=== PATIENT | female | born 1995 | race Hispanic/Latino ===

== ENCOUNTER 2023-11-27 17:54 | Emergency (ER) | payer OTHER, SELFPAY ==
[2023-11-27 18:02] VITALS: BP 144/100; BMI 36.3
[2023-11-27 18:32] LABS: % Basophils 0.4 % (0-2); % Eosinophils 2.9 % (0-6); % Immature Granulocytes 0.5 % (0-0.5); % Lymphocytes 23.7 % (20.5-51.1); % Monocytes 5.9 % (1.7-9.3); % Neutrophils 66.6 % (42.2-75.2); Absolute Eosinophils 0.3 10^3/uL (0-0.7); Absolute Monocytes 0.5 10^3/uL (0.1-0.6); Absolute Neutrophils 5.7 10^3/uL (1.4-6.5); Hematocrit 27.1 % (37.0-47.0); Hemoglobin 8.3 g/dL (12.0-16.0); Mean Corp Hgb Conc. 30.6 g/dL (33.0-37.0); Mean Corpuscular Hgb 22.7 pg (27.0-31.0); Mean Corpuscular Volume 74.2 fL (81.0-99.0); Mean Platelet Volume 13.2 fL (7.4-10.4); Nucleated Red Blood Cells % 0 %; Platelet Count 211 10^3/uL (130-400); Red Blood Cell Count 3.65 10^6/uL (4.20-5.40); White Blood Cell Count 8.5 10^3/uL (4.8-10.8)
[2023-11-27 18:46] LABS: ALT (SGPT) 23 U/L (0-35); AST (SGOT) 27 U/L (14-36); Albumin 4.5 g/dl (3.5-5.0); Alkaline Phosphatase 98 U/L (38-126); Blood Urea Nitrogen 16 mg/dl (7-17); Calcium 6.9 mg/dl (8.4-10.2); Carbon Dioxide 24 mmol/L (22-30); Chloride 100 mmol/L (98-107); Estimated Creatinine Clearance > 125 ml/min; Glucose 104 mg/dl (70-99); Potassium 3.9 mmol/L (3.5-5.1); Sodium 139 mmol/L (135-145); Total Bilirubin 0.8 mg/dl (0.2-1.3); Total Protein 8.2 g/dl (6.3-8.2); eGFR > 60.00
[2023-11-27 18:55] LABS: Troponin I < 0.012 ng/ml
--- NOTE | 2023-11-27 20:23 | ED.GENMED ---
History of Present Illness
General
Chief Complaint: Blood Pressure Problem
Source: patient
Exam Limitations: other (Some Language barrier and sister interpreted)
Time Seen by Provider: 11/27/23 19:50
Travel History
Have you had any contact with someone who has COVID-19?: No
Do you have any symptoms of coronavirus? Fever > 100 degrees, chills, cough, shortness of breath, sore throat, loss of taste or smell, muscle aches, or headache?: No
History of Present Illness
History of Present Illness:
This is a 28 year old female that comes in with c/o Hypertension. States that she went to the [facility] today and they found that her BP was 170/70. states that she was told that this was high to come to the Emergency room. States that she has
occasionally has some chest discomfort and SOB with walking. State that she was nauseated yesterday and had diarrhea. States that she is occasionally dizzy but not today. Denies any fever, chills, chest pain now, SOB now, Abd pain, nausea,
vomiting, diarrhea, urinary burning.
Past History
Past History
ED Past Medical History: Asthma, HTN and Hypercholesterolemia
ED Past Surgical History: None
Patient has exhibited threatening behavior?: No
PSI?: No
Social History
Tobacco: Non-smoker
Alcohol: None
Drug: None
Personal:
Living: with family
Review of Systems
Review of Systems
All Other Systems: ROS reviewed and negative except as documented in HPI and ROS
Constitutional: Reports no symptoms; Denies fever or chills
EENT: Reports no symptoms
Respiratory: Reports trouble breathing (occasionally when she walks); Denies cough
Cardiac: Denies chest pain
ABD/GI: Reports no symptoms; Denies abdominal pain, nausea, vomiting or diarrhea
: Reports no symptoms; Denies dysuria, frequency or urgency
Musculoskeletal: Reports no symptoms
Skin: Reports no symptoms
Neurological: Reports dizzy and headache
Psychiatric: Reports no symptoms
Phy Exam
General Physical Exam
General Presentation: well appearing and no apparent distress
General age: appears stated age
General Skin: warm and dry
General Habitus: normal
General Mental: alert
General Hydration: appears well hydrated
ENT Exam
ENT Exam: TM's normal, pharynx normal and neck supple
Eye Exam
Eye Exam: EOMI
Cardiovascular Exam
Cardiovascular Exam: regular rate/rhythm, no edema, no murmur and normal peripheral pulses
Pulmonary Exam
Pulmonary Exam: lungs clear, no respiratory distress, no rales, chest non tender, no crackles, no rhonchi, no wheezing and no cough
Gastrointestinal Exam
Gastrointestinal Exam: normal bowel sounds, non tender, soft, no organomegaly, no pulsatile mass and non distended
Musculoskeletal Exam
Musculoskeletal Exam: full ROM and no edema
Skin Exam
Skin Exam: normal color, warm/dry, no rash and no petechia
Psychiatric Exam
Psychiatric Exam: normal mood/affect
Course
Orders/Labs/Results
Orders:
Orders
11/27/23 18:06
Electrocardiogram (*1) Urgent
Reason for Study: Chest Pain
EKG- Treatment ONCE
11/27/23 18:14
Complete Blood Count/With Diff Urgent
Comprehensive Metabolic Panel Urgent
Troponin I Urgent
11/27/23 19:57
Calcium Gluconate IV [Calcium Gluconate 10% 10 ml] 4.65 meq IV NOW STA
11/27/23 20:25
Pantoprazole [Protonix] 40 mg PO NOW STA
Abnormal Lab Results
11/27/23
18:14
RBC 3.65 L 10^6/uL
(4.20-5.40)
Hgb 8.3 L g/dL
(12.0-16.0)
Hct 27.1 L %
(37.0-47.0)
MCV 74.2 L fL
(81.0-99.0)
MCH 22.7 L pg
(27.0-31.0)
MCHC 30.6 L g/dL
(33.0-37.0)
RDW 16.0 H %
(11.5-14.5)
MPV 13.2 H fL
(7.4-10.4)
Glucose 104 H mg/dl
(70-99)
Calcium 6.9 L* mg/dl
(8.4-10.2)
11/27/23 18:14
11/27/23 18:14
H/H low, Anemia, Glucose nonfasting. Hypocalcemia, Troponin <0.012
Vital Signs
Initial and Last Documented VS:
Initial Vital Signs
Temp Pulse Resp BP Pulse Ox
98.4 F 102 24 144/100 96
11/27/23 18:02 11/27/23 18:02 11/27/23 18:02 11/27/23 18:02 11/27/23 18:02
Last Documented Vital Signs
Temp Pulse Resp BP Pulse Ox
98.4 F 98 16 121/82 100
11/27/23 18:02 11/27/23 20:39 11/27/23 20:39 11/27/23 20:39 11/27/23 20:39
Electromechanical Engineer consulted with Physician
Name of Physician Consulted: Dr. Rivera
MDM/Problems Addressed
Differential Diagnosis Includes:
Anemia, Obesity, GERD,
MDM/Problems Addressed:
This is a 28 year old female that comes in with c/o hypertension. States that she saw her PCP today and she was told that her BP was elevated and to come to the ER. States that she does have a headache with some dizziness and has occasional Chest
pain, and SOB with walking.
Will check labs.
back to see patient. Explained that her blood work shows that she is anemia and that her calcium is very low. Will give IV Calcium here and Protonix for her reflux. Patient states that she drinks a lot of soda. Explained that this will increase her
GERD and she may feel like she has chest discomfort. Will recheck after Calcium given.
Back to see patient. Explained that she needs to take her Iron as directed. Patient was given Calcium here to raise her Calcium level and she have repeat labs in the next 2-3 days. Patient to watch her sodium intake as this will elevated her BP.
Patient to follow up with the PCP. Return with any concerns
Chronic conditions affecting care: HTN
Acute Exacerbation and/or Progression of Chronic Illness: HTN
*Pulse Oximetry
Patient hypoxic: no
*EKG
Interpreted by ED Provider?: Yes
Heart Rate: 95
Rate: normal
Rhythm: sinus
[place]: normal axis
Interval: long QT
QRS Pattern: normal QRS
Ischemia: no ischemia
*Dental Hygiene Teacher Interpretation
Rate: Dental Hygiene Teacher- N/A
*Critical Care Note
Total Time (30-74mins, 75-104mins- exclusive of procedures): Not Applicable
ED Attending Note
-
Portions of this chart may have been created with voice recognition software.� Occasional wrong word or��sound alike� substitutions may have occurred due to the inherent limitations of voice recognition software.
Discharge Plan
Departure
Patient Disposition: Home (Routine Discharge)
Date of Disposition: 11/27/23
Time of Disposition: 22:33
Patient with high blood pressure during this ER visit?: No
Condition: Good
Covid-19: Not Applicable
Discharge Problem:
Acute headache, Hypocalcemia
Instructions: Headache, Adult (DC), Hypocalcemia (DC)
Prescriptions:
No Action
cholecalciferol (vitamin D3) 25 mcg (1,000 unit) capsule
25 mcg PO DAILY Qty: 30 3RF
ferrous sulfate 325 mg (65 mg iron) tablet
325 mg PO DAILY Qty: 30 3RF
tranexamic acid 650 mg tablet
650 mg PO TID PRN (Reason: severe vaginal bleeding) 4 Days Qty: 12 0RF
cephalexin 500 mg capsule
500 mg PO BID 10 Days Qty: 20 0RF
tranexamic acid 650 mg tablet
650 mg PO TID 5 Days Qty: 15 0RF
Referrals:
NONE,* [Family Provider] -
Activity Restrictions/Additional Instructions:
As discussed, your blood work shows that you are anemic. Please take your iron as prescribed. Your Calcium was also low. You will need repeat labs in 2-3 days that can be ordered by your family doctor. You have been given IV Calcium here. Your BP
has come down on its own. Watch your sodium intake as this will increase your blood pressure. Please increase your water intake to 8-8oz glasses daily. Follow up with the family doctor in the next 2-3 days. IF YOU HAVE ANY OTHER CONCERNS PLEASE
RETURN TO THE EMERGENCY ROOM.
Interventions
Interventions:
*Risk Screen - Suicide Last Done: 11/27/23 18:02
*General Assessment Last Done: 11/27/23 20:36
*Neglect/Abuse Screening Last Done: 11/27/23 18:02
ED- Fall Risk Assessment Last Done: 11/27/23 20:37
*ED COVID-19 Vaccine History Last Done: 11/27/23 18:02
ED- Cardiac Assessment Last Done: 11/27/23 20:37
ED- Neurological Assessment Last Done: 11/27/23 20:37
ED- Pulmonary Assessment Last Done: 11/27/23 20:37
Discharge Date and Time
Print Language: TAJIK
[2023-11-27] MEDS: CALCIUM GLUCONATE 10% 10 ML 4.65000000000000036 MEQ IV (20:24)
[2023-11-27 20:39] VITALS: BP 121/82
[2023-11-27] MEDS: PROTONIX 40 MG PO (21:23)
== END 2023-11-27 22:46 | disposition home or self-care (01) ==
LOC: EMR 17:54
PROVIDERS: Emergency Medicine; EMERGENCY PHYSICIAN Emergency Medicine
DX: E83.51 Hypocalcemia (principal); R51.9 Headache, unspecified; I10 Essential (primary) hypertension; D64.9 Anemia, unspecified
CPT/HCPCS: 99284; 96374; 80053; 84484; 85025; 93005

== ENCOUNTER 2023-12-03 14:01 | Emergency (ER) | payer OTHER, SELFPAY ==
[2023-12-03 14:03] VITALS: BP 116/84
[2023-12-03 14:25] LABS: % Basophils 0.5 % (0-2); % Eosinophils 1.8 % (0-6); % Immature Granulocytes 0.7 % (0-0.5); % Lymphocytes 22.7 % (20.5-51.1); % Monocytes 5.1 % (1.7-9.3); % Neutrophils 69.2 % (42.2-75.2); Absolute Eosinophils 0.2 10^3/uL (0-0.7); Absolute Immature Granulocytes 0.1 10^3/uL (0-0.05); Absolute Monocytes 0.5 10^3/uL (0.1-0.6); Absolute Neutrophils 6.1 10^3/uL (1.4-6.5); Hemoglobin 8.3 g/dL (12.0-16.0); Mean Corp Hgb Conc. 30.7 g/dL (33.0-37.0); Mean Corpuscular Hgb 22.4 pg (27.0-31.0); Mean Corpuscular Volume 72.8 fL (81.0-99.0); Nucleated Red Blood Cells % 0.2 %; Red Blood Cell Count 3.71 10^6/uL (4.20-5.40); Red Cell Dist. Width 16.3 % (11.5-14.5); White Blood Cell Count 8.8 10^3/uL (4.8-10.8)
[2023-12-03 14:41] LABS: Urine Albumin Negative (Neg - Trace); Urine Bilirubin Negative (Negative); Urine Character Clear (Clear); Urine Color Yellow; Urine Glucose Negative (Negative); Urine Ketone Trace (Negative); Urine Leukocyte Trace (Negative); Urine Nitrite Negative (Negative); Urine Occult Blood 4+ (Negative); Urine Specific Gravity 1.015 (<1.030); Urine Urobilinogen 1+ (Neg - 1+)
[2023-12-03 14:50] LABS: Alkaline Phosphatase 93 U/L (38-126); Blood Urea Nitrogen 12 mg/dl (7-17); Calcium 7.4 mg/dl (8.4-10.2); Carbon Dioxide 23 mmol/L (22-30); Chloride 104 mmol/L (98-107); Glucose 95 mg/dl (70-99); Potassium 4.6 mmol/L (3.5-5.1); Sodium 136 mmol/L (135-145); eGFR > 60.00
[2023-12-03 14:51] LABS: ALT (SGPT) 21 U/L (0-35); AST (SGOT) 30 U/L (14-36); Albumin 4.5 g/dl (3.5-5.0); Lipase 67 U/L (23-300); Total Bilirubin 0.8 mg/dl (0.2-1.3); Total Protein 8.3 g/dl (6.3-8.2)
[2023-12-03 14:59] LABS: Urine Squamous Cell >30 /LPF (Few)
[2023-12-03 15:00] LABS: Urine Bacteria Moderate (Negative); Urine Red Blood Cell 30-40 /HPF (0-2)
--- NOTE | 2023-12-03 16:07 | ED.GENMED ---
History of Present Illness
General
Chief Complaint: Abdominal Symptoms
Source: patient
Exam Limitations: none
Time Seen by Provider: 12/03/23 14:45
Nursing documentation reviewed up to this point in time: agreed with
Travel History
Have you had any contact with someone who has COVID-19?: No
Do you have any symptoms of coronavirus? Fever > 100 degrees, chills, cough, shortness of breath, sore throat, loss of taste or smell, muscle aches, or headache?: No
History of Present Illness
History of Present Illness:
28-year-old female states she went for a walk at 10:20 AM for an hour, by 1130 she felt dizzy, had a general headache and felt nauseous. She went with her mother to a restaurant to get something to eat but was so nauseous and almost vomited that
she only drank something. Denies chest pain or shortness of breath. Denies fever or chills. Denies D/C.
Patient states last she was here for hypertension. She states she reported to her PCP that her blood pressure was 169 systolic and they sent her to the ED, on arrival here her blood pressure was systolic 170/.
She had a follow-up visit with her PCP yesterday and her blood pressure systolic was 140. She has another follow-up with in 3 days for blood pressure recheck.
Because she felt poorly, she asked her mother to bring her to the emergency room today
Patient has a history of anemia, very heavy periods so she is on tranexamic acid with good control of the bleeding. Her PCP is aware of this and she has had workup for this.
She also has episodes of 'feeling hard to breath in my throat,' anxiety, panicky but has not discussed this with her PCP.
Her medications are iron, calcium, vitamins, vitamin D and the tranexamic acid
Past History
Past History
ED Past Medical History: Asthma, HTN and Hypercholesterolemia
ED Past Surgical History: None
Patient has exhibited threatening behavior?: No
PSI?: No
Social History
Tobacco: Non-smoker
Alcohol: None
Drug: None
Personal:
Living: with family
Review of Systems
Review of Systems
Allergies reviewed?: Yes
All Other Systems: ROS reviewed and negative except as documented in HPI and ROS
Constitutional: Denies fever
Respiratory: Denies trouble breathing
Cardiac: Denies chest pain
ABD/GI: Reports nausea; Denies abdominal pain, vomiting, diarrhea, bloody stools or black stools
: Denies dysuria, frequency or difficulty voiding
Musculoskeletal: Reports no symptoms
Skin: Reports no symptoms
Neurological: Reports dizzy and headache; Denies weakness or numbness
Phy Exam
Physical Exam
Physical Exam:
GENERAL: No acute distress. A&Ox3.
CONSTITUTIONAL: Afebrile.
EYES: clear, conjunctivae normal
ENMT: moist mucus membranes, Pharynx nl
RESPIRATORY: Regular respirations, nonlabored, lungs clear.
CARDIOVASCULAR: Regular rate and rhythm, no murmurs, no rubs.
GI: Soft, nontender, normal BS
MUSCULOSKELETAL: Moves with ease. Well perfused.
SKIN: Warm, dry, pink
PSYCH: Normal mood and affect. Well kept, interactive and appropriate
NEUROLOGIC: Awake, alert and oriented. No focal neurological deficits, Ambulates well with steady gait.
Course
Orders/Labs/Results
Orders:
Orders
12/03/23 14:16
Complete Blood Count/With Diff Urgent
Comprehensive Metabolic Panel Urgent
Lipase Urgent
Urinalysis Reflex To Culture Urgent
Date Specimen was Collected: 12/03/23
Time Specimen was Collected: 14:06
Urine Microscopic Reflex Cult Urgent
Urine Culture Urgent
CALLI Source: U
Specimen Description:
Date Specimen was Collected: 12/03/23
Time Specimen was Collected: 14:06
Abnormal Lab Results
12/03/23
14:16
RBC 3.71 L 10^6/uL
(4.20-5.40)
Hgb 8.3 L g/dL
(12.0-16.0)
Hct 27.0 L %
(37.0-47.0)
MCV 72.8 L fL
(81.0-99.0)
MCH 22.4 L pg
(27.0-31.0)
MCHC 30.7 L g/dL
(33.0-37.0)
RDW 16.3 H %
(11.5-14.5)
Abs Immat Gran (auto) 0.1 H 10^3/uL
(0-0.05)
Immature Gran % 0.7 H %
(0-0.5)
Creatinine 0.5 L mg/dL
(0.6-1.0)
Calcium 7.4 L mg/dl
(8.4-10.2)
Total Protein 8.3 H g/dl
(6.3-8.2)
Urine Ketones Trace A
(Negative)
Ur Occult Blood Reflex 4+ A
(Negative)
Leukocyte Esterase Rfl Trace A
(Negative)
Urine RBC 30-40 A /HPF
(0-2)
Urine Bacteria (Reflex) Moderate A
(Negative)
12/03/23 14:16
12/03/23 14:16
Vital Signs
Initial and Last Documented VS:
Initial Vital Signs
Temp Pulse Resp BP Pulse Ox
98.0 F 94 18 116/84 100
12/03/23 14:03 12/03/23 14:03 12/03/23 14:03 12/03/23 14:03 12/03/23 14:03
Last Documented Vital Signs
Temp Pulse Resp BP Pulse Ox
98.0 F 94 18 116/84 100
12/03/23 14:03 12/03/23 14:03 12/03/23 14:03 12/03/23 14:03 12/03/23 14:03
MDM/Problems Addressed
Differential Diagnosis Includes:
dehydration, BPPV, HTN, anxiety
MDM/Problems Addressed:
28-year-old female states she went for a walk at 10:20 AM for an hour, by 1130 she felt dizzy, had a general headache and felt nauseous. She went with her mother to a restaurant to get something to eat but was so nauseous and almost vomited that
she only drank something. Denies chest pain or shortness of breath. Denies fever or chills. Denies D/C.
Patient states last she was here for hypertension. She states she reported to her PCP that her blood pressure was 169 systolic and they sent her to the ED, on arrival here her blood pressure was systolic 170/.
She had a follow-up visit with her PCP yesterday and her blood pressure systolic was 140. She has another follow-up with in 3 days for blood pressure recheck.
Because she felt poorly, she asked her mother to bring her to the emergency room today
Patient has a history of anemia, very heavy periods so she is on tranexamic acid with good control of the bleeding. Her PCP is aware of this and she has had workup for this.
She also has episodes of 'feeling hard to breath in my throat,' anxiety, panicky but has not discussed this with her PCP.
Her medications are iron, calcium, vitamins, vitamin D and the tranexamic acid 15
4:15 PM CBC: Hemoglobin 8.3 consistent with her previous 1 on 11/27/23. She is taking iron.
Calcium level is 7.4 still a little low but it is improved from 6.9 on 01/27/2024 as she is taking the recommended calcium.
UA shows no sign of infection, RBCs present as she is currently menstruating
Sent with patient for 15 minutes, lengthy discussion about her anxieties, feeling short of breath at time, not working for past 18 days due to health concerns, patient encouraged to talk to her PCP about her feelings of anxiety and she may benefit
medication. She agrees she will do this.
Copies of her labs were given to her to discuss with her PCP at her next visit in 3 days.
Her dizziness and headache are both minimal at this time. She states she is feeling better.
BP 116/84
*Critical Care Note
Total Time (30-74mins, 75-104mins- exclusive of procedures): Not Applicable
ED Attending Note
-
Portions of this chart may have been created with voice recognition software.� Occasional wrong word or��sound alike� substitutions may have occurred due to the inherent limitations of voice recognition software.
Discharge Plan
Departure
Patient Disposition: Home (Routine Discharge)
Date of Disposition: 12/03/23
Time of Disposition: 16:26
Patient with high blood pressure during this ER visit?: No
Condition: Good
Discharge Problem:
Headache, Nonspecific dizziness, Anxiety about health
Instructions: Headache, Adult ED, Anxiety, Adult ED, Dizziness, Adult ED
Prescriptions:
No Action
cholecalciferol (vitamin D3) 25 mcg (1,000 unit) capsule
25 mcg PO DAILY Qty: 30 3RF
ferrous sulfate 325 mg (65 mg iron) tablet
325 mg PO DAILY Qty: 30 3RF
tranexamic acid 650 mg tablet
650 mg PO TID PRN (Reason: severe vaginal bleeding) 4 Days Qty: 12 0RF
cephalexin 500 mg capsule
500 mg PO BID 10 Days Qty: 20 0RF
tranexamic acid 650 mg tablet
650 mg PO TID 5 Days Qty: 15 0RF
Referrals:
Your, Doctor [Other] - Keep scheduled appt
UNKNOWN - PT DOES,NOT KNOW [Family Provider] -
Activity Restrictions/Additional Instructions:
As we discussed, your workup here today shows nothing worrisome.
When you see your doctor on Saturday, discussed your feelings of anxiety and ask if here she thinks you you may benefit from medication for this.
Your blood pressure was totally normal here
Your laboratory work shows nothing worrisome.
Your calcium level is improving
You are significantly anemic
Continue your current medication. Get refills from your doctor on Saturday if needed.
Take copies of your laboratory work to your doctor when you go on Saturday to discuss.
Interventions
Interventions:
*Risk Screen - Suicide Last Done: 12/03/23 14:03
*General Assessment Last Done: 12/03/23 14:03
*Neglect/Abuse Screening Last Done: 12/03/23 14:03
ED- Fall Risk Assessment Last Done: 12/03/23 16:39
*ED COVID-19 Vaccine History Last Done: 12/03/23 14:03
*Nursing Disposition Last Done: 12/03/23 16:39
HQ-Vkpume-Vlghixvzft Assessment Last Done: 12/03/23 14:51
Discharge Date and Time
Discharge Date/Time: 12/03/23 16:41
Print Language: [place]
== END 2023-12-03 16:41 | disposition home or self-care (01) ==
LOC: EMR 14:01
PROVIDERS: Emergency Medicine; EMERGENCY PHYSICIAN Emergency Medicine
DX: R51.9 Headache, unspecified (principal); R42 Dizziness and giddiness; R11.0 Nausea; R06.02 Shortness of breath; F41.9 Anxiety disorder, unspecified; D64.9 Anemia, unspecified; I10 Essential (primary) hypertension; E78.00 Pure hypercholesterolemia, unspecified; J45.909 Unspecified asthma, uncomplicated
CPT/HCPCS: 99283; 80053; 81003; 81015; 83690; 85025; 87086

== ENCOUNTER 2024-03-03 04:49 | Observation (INO) | payer OTHER, SELFPAY ==
[2024-03-02 23:42] VITALS: BP 150/88
[2024-03-03] VITALS (18 sets, daily range): BP systolic 92–135; BP diastolic 48–80; BMI 36.7
[2024-03-03 01:02] LABS: % Basophils 0.3 % (0-2); % Eosinophils 2.1 % (0-6); % Immature Granulocytes 0.2 % (0-0.5); % Lymphocytes 21.6 % (20.5-51.1); % Monocytes 5.2 % (1.7-9.3); % Neutrophils 70.6 % (42.2-75.2); Absolute Eosinophils 0.2 10^3/uL (0-0.7); Absolute Lymphocytes 1.9 10^3/uL (1.2-3.4); Absolute Monocytes 0.5 10^3/uL (0.1-0.6); Absolute Neutrophils 6.1 10^3/uL (1.4-6.5); Hematocrit 22.3 % (37.0-47.0); Hemoglobin 7.2 g/dL (12.0-16.0); Mean Corp Hgb Conc. 32.3 g/dL (33.0-37.0); Mean Corpuscular Hgb 26.2 pg (27.0-31.0); Mean Corpuscular Volume 81.1 fL (81.0-99.0); Nucleated Red Blood Cells % 0 %; Red Blood Cell Count 2.75 10^6/uL (4.20-5.40); Red Cell Dist. Width 19.8 % (11.5-14.5); White Blood Cell Count 8.7 10^3/uL (4.8-10.8)
[2024-03-03 01:09] LABS: Mean Platelet Volume 11.7 fL (7.4-10.4); Platelet Count 237 10^3/uL (130-400)
[2024-03-03 01:21] LABS: ALT (SGPT) 15 U/L (0-35); AST (SGOT) 19 U/L (14-36); Albumin 3.8 g/dl (3.5-5.0); Alkaline Phosphatase 69 U/L (38-126); Blood Urea Nitrogen 14 mg/dl (7-17); Calcium 6.6 mg/dl (8.4-10.2); Carbon Dioxide 22 mmol/L (22-30); Chloride 106 mmol/L (98-107); Glucose 147 mg/dl (70-99); Potassium 3.6 mmol/L (3.5-5.1); Sodium 138 mmol/L (135-145); Total Bilirubin 0.7 mg/dl (0.2-1.3); Total Protein 6.5 g/dl (6.3-8.2); eGFR > 60.00
--- NOTE | 2024-03-03 01:57 | ED.GENMED ---
History of Present Illness
General
Chief Complaint: Abnormal Lab Value
Source: patient
Time Seen by Provider: 03/03/24 01:00
History of Present Illness
History of Present Illness:
28-year-old female presents emergency room complaining of shortness of breath, dizziness, weakness, fatigue. Patient was ordered hemoglobin is over her primary care doctor. Patient has a chronic issue with dysfunctional uterine bleeding. She is
referred several transfusions. She is also on IV iron infusions. She denies any fever or chills. She has been having heavy vaginal bleeding which seems to be trailing off over the past couple days. Has seen by [facility] OPERATOR at [facility]. She tells me
she has had ultrasounds with did not show any significant abnormalities.
Past History
Past History
ED Past Medical History: Asthma, HTN and Hypercholesterolemia
ED Past Surgical History: None
Patient has exhibited threatening behavior?: No
PSI?: No
Social History
Tobacco: Non-smoker
Alcohol: None
Drug: None
Personal:
Living: with family
Phy Exam
Physical Exam
Physical Exam:
General: Awake, Alert, Oriented X3. No acute distress.
Vitals: unremarkable
Head: Atraumatic
Eyes: Pupils equal, EOMI, pale conjunctiva
Throat: Airway intact, no exudates
Neck: Trachea midline
Lungs: Clear and equal b/l
Heart: Regular rate, no murmurs
Abd: Soft, Nontender, No pulsatile mass
Neuro: Nonfocal
Skin: Warm, dry, no rash, pale complexion
Extremities: pulses equal b/l, no edema
Course
Orders/Labs/Results
Orders:
Orders
03/03/24 00:55
Type+Screen Urgent
Complete Blood Count/With Diff Urgent
Comprehensive Metabolic Panel Urgent
03/03/24 01:34
Electrocardiogram (*1) Urgent
Reason for Study: QTc Monitoring
EKG- Treatment ONCE
03/03/24 01:43
* Blood Bank Products Urgent
Blood Bank Products: *Packed RBC Leuko(PRBC's)
Quantity: 1
Transfuse Today: Yes
Reason: Anemia
03/03/24 01:48
Add On- LAB Urgent
Tests Added?: ionized calcium
03/03/24 01:50
Calcium Gluconate 1 gram/100mL [Calcium Gluconate] 1 gram in 100 ml IV ONCE
Abnormal Lab Results
03/03/24
00:55
RBC 2.75 L 10^6/uL
(4.20-5.40)
Hgb 7.2 L g/dL
(12.0-16.0)
Hct 22.3 L %
(37.0-47.0)
MCH 26.2 L pg
(27.0-31.0)
MCHC 32.3 L g/dL
(33.0-37.0)
RDW 19.8 H %
(11.5-14.5)
MPV 11.7 H fL
(7.4-10.4)
Glucose 147 H mg/dl
(70-99)
Calcium 6.6 L* mg/dl
(8.4-10.2)
03/03/24 00:55
03/03/24 00:55
Vital Signs
Initial and Last Documented VS:
Initial Vital Signs
Temp Pulse Resp BP Pulse Ox
97.8 F 108 22 150/88 98
03/02/24 23:42 03/02/24 23:42 03/02/24 23:42 03/02/24 23:42 03/02/24 23:42
Last Documented Vital Signs
Temp Pulse Resp BP Pulse Ox
97.8 F 84 23 92/61 99
03/02/24 23:42 03/03/24 02:15 03/03/24 02:15 03/03/24 02:00 03/03/24 02:15
MDM/Problems Addressed
Differential Diagnosis Includes:
Anemia iron deficiency, anemia from blood loss, dysfunctional bleeding, pituitary axis dysfunction, vitamin D deficiency
MDM/Problems Addressed:
Patient presents with weakness. She also has paresthesias. She also endorses cramping in her calf and foot. Patient found to be hypocalcemic as well as anemic with hemoglobin of 7.3. IV calcium ordered, as well as a unit of PRBCs. Patient will
be hospitalized to monitor appropriate correction of calcium for further evaluation as to why she has persistently improved calcium
*Pulse Oximetry
Patient hypoxic: no
*EKG
Interpreted by ED Provider?: Yes
Heart Rate: 88
Rate: normal
Rhythm: sinus
[place]: normal axis
Interval: normal interval
QRS Pattern: normal QRS
Ischemia: no ischemia
*Mobile Lab Technician Interpretation
Rate: normal
Interpretation: normal
Rhythm: sinus
*Critical Care Note
Total Time (30-74mins, 75-104mins- exclusive of procedures): Not Applicable
ED Attending Note
-
Portions of this chart may have been created with voice recognition software.� Occasional wrong word or��sound alike� substitutions may have occurred due to the inherent limitations of voice recognition software.
Discharge Plan
Departure
Patient Disposition: Admit
Date of Disposition: 03/03/24
Time of Disposition: 01:57
Admit to: Telemetry
Presentation/result/management discussed w/ accepting MD/DO: Hospitalist
Condition: Fair
Discharge Problem:
Hypocalcemia, Dysfunctional uterine bleeding, Symptomatic anemia
Prescriptions:
No Action
cholecalciferol (vitamin D3) 25 mcg (1,000 unit) capsule
25 mcg PO DAILY Qty: 30 3RF
ferrous sulfate 325 mg (65 mg iron) tablet
325 mg PO DAILY Qty: 30 3RF
tranexamic acid 650 mg tablet
650 mg PO TID PRN (Reason: severe vaginal bleeding) 4 Days Qty: 12 0RF
cephalexin 500 mg capsule
500 mg PO BID 10 Days Qty: 20 0RF
tranexamic acid 650 mg tablet
650 mg PO TID 5 Days Qty: 15 0RF
Referrals:
PRIVATE,PHYSICIAN [Family Provider] -
Interventions
Interventions:
*Risk Screen - Suicide Last Done: 03/02/24 23:42
*General Assessment Last Done: 03/03/24 02:08
*Neglect/Abuse Screening Last Done: 03/02/24 23:42
ED- Fall Risk Assessment Last Done: 03/03/24 02:08
*ED COVID-19 Vaccine History Last Done: 03/03/24 02:08
Discharge Date and Time
Print Language: ALB[place]
[2024-03-03] MEDS: CALCIUM GLUCONATE 100 IV ×2 (02:02→09:01)
[2024-03-03 03:39] LABS: Ionized Calcium 0.91 mMOL/L (1.15-1.33)
--- NOTE | 2024-03-03 04:21 | HPS.HSE ---
Family Physician
-
Family Physician: PHYSICIAN PRIVATE
Chief Complaint
-
fatigue, weakness, anemia
History of Present Illness
The patient is a 28-year-old woman with past medical history significant for vitamin D deficiency, hypocalcemia, dysfunctional uterine bleeding, asthma, hypertension who has been seen multiple times for hypocalcemia, dysfunctional uterine bleeding
and acute on chronic anemia. She presents to the emergency department today secondary to complaints of dyspnea, dizziness weakness and fatigue. Weakness is nonfocal at this time. She had her hemoglobin performed outpatient and she was referred
here for severe anemia. She is being seen outpatient for dysfunctional uterine bleeding and says that she is waiting on insurance approval. Her aquacultural worker supervisor is in [place] and said that he would like to remove her IUD as part of the treatment
plan. She has had a history of multiple blood transfusions and IV iron infusions. At this time she denies fevers chills shortness of breath or chest pain. She denies palpitations. She notes that in the past she has had ultrasounds that did not
show any significant abnormalities.
Medical History
Past Medical History
Past Medical History: Reports Asthma, HTN, Hypercholesterolemia and Other (Vitamin D Deficiency, Hypocalcemia, Dysfunctional uterine bleeding)
Past Surgical History: Reports None
Social History
Tobacco: Non-smoker
Alcohol: None
Drug: None
Personal:
Living: With Family
Family History
Family History: Other (mother with DUB)
Allergies / Home Medications
Allergies reflects when Allergies were last updated in [facility].
Home Medications with original date entered in [facility]
Allergy/Medication List:
Allergies
Allergy/AdvReac Type Severity Reaction Status Date / Time
DUST Allergy Unknown Uncoded 03/02/24 23:44
Home Medications
cholecalciferol (vitamin D3) 25 mcg (1,000 unit) capsule 25 mcg PO DAILY #30 caps 06/13/23
ferrous sulfate 325 mg (65 mg iron) tablet 325 mg PO DAILY #30 tabs 06/13/23
tranexamic acid 650 mg tablet 650 mg PO TID PRN severe vaginal bleeding 4 days #12 tabs 06/13/23
cephalexin 500 mg capsule 500 mg PO BID 10 days #20 caps 08/05/23
tranexamic acid 650 mg tablet 650 mg PO TID 5 days #15 tabs 08/05/23
Review of Systems
-
A 12 point ROS was completed and negative except as noted: Yes
Physical Exam
Vital Signs
Vital Signs
Temp Pulse Resp BP Pulse Ox
98 F 91 20 101/67 99
03/03/24 04:10 03/03/24 04:10 03/03/24 04:10 03/03/24 04:10 03/03/24 02:15
Physical Exam
General: Well Developed, Well Nourished and No Apparent Distress
HEENT: NormoCephalic, Anicteric, Moist mucous membranes and Other (pale)
Respiratory: Clear
Cardiac: S1/S2 and Regular Rhythm
GI: Soft, Non Tender and Non Distended
Musculoskeletal: No Clubbing, No Cyanosis and No Edema
Skin: Warm and Dry
Neuro: AO x 3, No Motor Deficits and Nonfocal/grossly intact
Psych: Calm and Intact Judgment/Insight
Laboratory Results
-
03/03/24 00:55
03/03/24 00:55
Laboratory Results
Total Bilirubin 0.7 mg/dl (0.2-1.3) 03/03/24 00:55
AST 19 U/L (14-36) 03/03/24 00:55
ALT 15 U/L (0-35) 03/03/24 00:55
Alkaline Phosphatase 69 U/L (38-126) 03/03/24 00:55
Impression/Plan
-
IMPRESSION:
# Symptomatic acute blood loss anemia most likely from dysfunctional uterine bleeding, history of DUB
-sees OP Mechanical Development Engineer, consider Mechanical Development Engineer consult
-repeat CBC
-tele monitoring
-Hgb 7.2 1 Unit PRBC ordered from ED, pending transfusion
-she takes Norethindrone 5 mg PO BID at home, need med rec updated
# Hypocalcemia, acute on chronic
-IV Calcium gluconate 1 gram
-ionized calcium
-consider Nephrology consultation/work-up for hypocalcemia, unclear what work-up she's had in the past
# Chronic vitamin D deficiency
-on Vit D 2 49088 twice a week
#Essential Hypertension
#Asthma
DVT proph PCSs
Full Code
[2024-03-03 08:11] LABS: Blood Urea Nitrogen 12 mg/dl (7-17); Calcium 7.2 mg/dl (8.4-10.2); Carbon Dioxide 21 mmol/L (22-30); Chloride 107 mmol/L (98-107); Glucose 95 mg/dl (70-99); Iron 40 ug/dl (37-170); Potassium 4.1 mmol/L (3.5-5.1); Sodium 140 mmol/L (135-145); eGFR > 60.00
[2024-03-03 08:19] LABS: Percent Saturation 9 % (20-50); Total Iron Binding Capacity 407 ug/dl (265-497)
--- NOTE | 2024-03-03 08:35 | W.PN.HOSP.TC ---
Today's Communication/Plan
-
see A/P
Assessment / Plan
Assessment / Plan
HPI: 28-year-old woman with past medical history significant for vitamin D deficiency, hypocalcemia, dysfunctional uterine bleeding, asthma, hypertension who has been seen multiple times for hypocalcemia, dysfunctional uterine bleeding and acute on
chronic anemia.
She presents to the emergency department secondary to complaints of dyspnea, dizziness weakness and fatigue. Weakness is nonfocal at this time. She had her hemoglobin performed outpatient and she was referred here for severe anemia. She is being
seen outpatient for dysfunctional uterine bleeding and says that she is waiting on insurance approval. Her shell molder is in [place] and said that he would like to remove her IUD as part of the treatment plan. She has had a history of multiple
blood transfusions and IV iron infusions.
She denies palpitations. She notes that in the past she has had ultrasounds that did not show any significant abnormalities.
A/P:
# Symptomatic acute blood loss anemia most likely from dysfunctional uterine bleeding (DUB)
# history of DUB
Hgb 7.2 on admission, transfused 1 unit PRBC
trend Hgb
Follow iron panel, B12, folate level
Pt sees OP Cloth Bleaching Range Tender in [place] with plan for ICD placement to help with her DUB
Check Hematest (if possible) as alternative cause of anemia
# Hypocalcemia, acute on chronic; likely due to Chronic vitamin D deficiency
replete with IV Calcium gluconate, give second gram today for Ca level at 7.2
Check 25 (OH) vit D level
Consider Nephrology consultation/work-up for hypocalcemia if not improving, recc pt to follow with renal outpt for her low calcium level
# Chronic vitamin D deficiency
check 25 OH vit D level
cont vit D outpt
# Constipation likely due to iron tablet INNERSOLE MAKER
Senna/Colace PRN
# Asthma
DVT proph SCD
Full Code
DW RN
Anticipated Discharge: 24 - 48 hours
Subjective/Interval History
-
Date of Service: March 03, 2024
Objective Data
-
Labs:
Laboratory Results
03/03/24 03/03/24 03/03/24
00:28 00:55 07:30
WBC Cancelled 8.7
Hgb Cancelled 7.2 L
Hct Cancelled 22.3 L
Plt Count Cancelled 237
Sodium Cancelled 138 140
Potassium Cancelled 3.6 4.1
Chloride Cancelled 106 107
Carbon Dioxide Cancelled 22 21 L
BUN Cancelled 14 12
Creatinine Cancelled 0.7 0.6
Glucose Cancelled 147 H 95
Calcium Cancelled 6.6 L* 7.2 L
Total Bilirubin Cancelled 0.7
AST Cancelled 19
ALT Cancelled 15
Alkaline Phosphatase Cancelled 69
Vital Signs:
Vital Signs
Temp Pulse Resp BP Pulse Ox
36.4 C 88 18 135/79 97
03/03/24 07:25 03/03/24 07:25 03/03/24 07:25 03/03/24 07:25 03/03/24 07:25
I&O
03/02/24 03/03/24 03/04/24
06:59 06:59 06:59
Intake Total 250 / 250
Balance 250 / 250
Review of Systems
-
Abdomen/GI: Reports Constipated
Genitourinary: Reports Vaginal Bleeding (mild)
Physical Exam
-
General: Well Developed, Well Nourished, No Apparent Distress, Comfortable, Conversant and Obese; Negative Respiratory Distress
HEENT: Normocephalic, Atraumatic, Nose Appears Normal and Ears Appear Normal; Negative Oxygen
Respiratory: Clear to Auscultation and Non Labored Respirations; Negative Accessory Resp Muscle Use
Cardiac: Regular Rhythm and S1/S2
GI: Soft, Nontender, Nondistended and Normal Bowel Sounds
Skin: Warm and Dry
Neuro: Awake and Alert
Psych: Calm and Intact Judgement/Insight
Data Reviewed
-
Labs: Labs Reviewed by me
[2024-03-03] MEDS: FEOSOL 325 MG PO (09:07)
[2024-03-03 09:10] LABS: Ferritin 7.9 ng/ml (6.24-137)
[2024-03-03] MEDS: SENOKOT-S 1 TABLET PO (09:28)
[2024-03-03 09:41] LABS: Folate 6.9 ng/ml (2.76-20); Vitamin B12 726 pg/ml (239-931)
[2024-03-03 10:49] LABS: Vitamin D, 25-OH*** 51.1 ng/mL (30-80)
[2024-03-03 10:53] LABS: Hematocrit 27.7 % (37.0-47.0); Hemoglobin 9.1 g/dL (12.0-16.0)
--- NOTE | 2024-03-03 11:06 | CM ---
Reviewed the chart notes and spoke with the patient at the bedside. The patient is admitted under observational status. The observation letter was provided and explained. The patient had no questions with regards to the letter.
The patient resides with her spouse, daughter, mother, sister and brother in a two story home with one step to enter. The patient reports no DME/VN/SNF in the past. The patient confirmed her pharmacy of choice is the [facility] Neto Sotomayor CM
continues to be available to patient/family and is monitoring medical plan for needs at discharge.
Plan: Discharge to home when medically stable. No anticipated needs.
[2024-03-03] MEDS: FERRLECIT 110 MG IV (13:36)
--- NOTE | 2024-03-04 03:33 | DOWNTIME ---
There was a [employer] Client Manager Export Downtime on 03/04/2024 from 0100 to 03/04/2024 at 0255. Downtime documentation of patient's care, including medication administrations, has been reconciled in the electronic record per guidelines. Refer to the
patient's paper chart under the miscellaneous tab to see printed paper medication records and downtime forms.
[2024-03-04 03:56] VITALS: BP 102/60
[2024-03-04 05:39] LABS: Hematocrit 27.2 % (37.0-47.0); Mean Corp Hgb Conc. 33.1 g/dL (33.0-37.0); Mean Corpuscular Hgb 27.4 pg (27.0-31.0); Mean Corpuscular Volume 82.9 fL (81.0-99.0); Red Blood Cell Count 3.28 10^6/uL (4.20-5.40); Red Cell Dist. Width 18.5 % (11.5-14.5)
[2024-03-04 05:43] LABS: Mean Platelet Volume 12.2 fL (7.4-10.4); Platelet Count 235 10^3/uL (130-400)
[2024-03-04 05:59] LABS: Blood Urea Nitrogen 12 mg/dl (7-17); Calcium 7.5 mg/dl (8.4-10.2); Carbon Dioxide 21 mmol/L (22-30); Chloride 105 mmol/L (98-107); Estimated Creatinine Clearance > 125 ml/min; Glucose 108 mg/dl (70-99); Iron 77 ug/dl (37-170); Magnesium 1.6 mg/dl (1.6-2.3); Potassium 3.9 mmol/L (3.5-5.1); Sodium 140 mmol/L (135-145); eGFR > 60.00
[2024-03-04 06:08] LABS: Percent Saturation 19 % (20-50); Total Iron Binding Capacity 398 ug/dl (265-497)
[2024-03-04 06:28] LABS: TSH 2.39 uIU/ml (0.47-4.68)
[2024-03-04 06:32] LABS: Ferritin 43.2 ng/ml (6.24-137)
[2024-03-04 06:47] LABS: Vitamin B12 696 pg/ml (239-931)
[2024-03-04 07:28] VITALS: BP 104/63
[2024-03-04] MEDS: FEOSOL 325 MG PO (07:28)
--- NOTE | 2024-03-04 11:19 | W.PN.HOSP.TC ---
Addendum entered and electronically signed by Cristine Flowers MD 03/04/24 14:33:
total DC time 49 min
Original Note:
Today's Communication/Plan
-
replete IV Mag and IV calcium
then DC home
Assessment / Plan
Assessment / Plan
HPI: 28-year-old woman with past medical history significant for vitamin D deficiency, hypocalcemia, dysfunctional uterine bleeding, asthma, hypertension who has been seen multiple times for hypocalcemia, dysfunctional uterine bleeding and acute on
chronic anemia.
She presents to the emergency department secondary to complaints of dyspnea, dizziness weakness and fatigue. Weakness is nonfocal at this time. She had her hemoglobin performed outpatient and she was referred here for severe anemia. She is being
seen outpatient for dysfunctional uterine bleeding and says that she is waiting on insurance approval. Her senior product development manager is in [place] and said that he would like to remove her IUD as part of the treatment plan. She has had a history of multiple
blood transfusions and IV iron infusions.
She denies palpitations. She notes that in the past she has had ultrasounds that did not show any significant abnormalities.
A/P:
# Symptomatic acute blood loss anemia most likely from dysfunctional uterine bleeding (DUB)
# history of DUB
Hgb 7.2 on admission, transfused 1 unit PRBC, Hgb at 9.0 today
iron panel noted KAYLA, IV iron during hospital stay, then resume REGISTERED DENTAL ASSISTANT RDA PO iron
B12/folate WNL
Pt sees OP Boiler Shop Supervisor in [place] with plan for ICD placement to help with her DUB , outpt follow
# Hypocalcemia, acute on chronic; likely due to Chronic vitamin D deficiency
replete with IV Calcium gluconate
25 (OH) vit D level WNL at 51
Noted low Mag level at 1.6, this could cause/potentiate hypocalcemia, replete with IV Mag
Recc outpt Nephrology eval for hypocalcemia
# Chronic vitamin D deficiency
25 (OH) vit D level WNL at 51
cont vit D outpt
# Constipation likely due to iron tablet REGISTERED DENTAL ASSISTANT RDA
Senna/Colace PRN
# Asthma
DVT proph SCD
Full Code
DW RN
Anticipated Discharge: Today
Subjective/Interval History
-
Date of Service: March 04, 2024
Objective Data
-
Labs:
Laboratory Results
03/04/24
05:16
WBC 9.0
Hgb 9.0 L
Hct 27.2 L
Plt Count 235
Sodium 140
Potassium 3.9
Chloride 105
Carbon Dioxide 21 L
BUN 12
Creatinine 0.6
Glucose 108 H
Calcium 7.5 L
Vital Signs:
Vital Signs
Temp Pulse Resp BP Pulse Ox
36.6 C 75 18 104/63 99
03/04/24 07:28 03/04/24 07:28 03/04/24 07:28 03/04/24 07:28 03/04/24 07:28
I&O
03/03/24 03/04/24 03/05/24
06:59 06:59 06:59
Intake Total 250 / 250 480 / 480
Balance 250 / 250 480 / 480
Review of Systems
-
All other systems: Reviewed and negative
Physical Exam
-
General: Well Developed, Well Nourished, No Apparent Distress, Comfortable, Conversant and Obese; Negative Respiratory Distress
HEENT: Normocephalic, Atraumatic, Nose Appears Normal and Ears Appear Normal; Negative Oxygen
Respiratory: Clear to Auscultation and Non Labored Respirations; Negative Accessory Resp Muscle Use
Cardiac: Regular Rhythm and S1/S2
GI: Soft, Nontender, Nondistended and Normal Bowel Sounds
Skin: Warm and Dry
Neuro: Awake and Alert
Psych: Calm and Intact Judgement/Insight
Data Reviewed
-
Labs: Labs Reviewed by me
[2024-03-04] MEDS: MAGNESIUM SULFATE 50 IV (11:35)
[2024-03-04] MEDS: CALCIUM GLUCONATE 100 IV (11:36)
--- NOTE | 2024-03-04 11:52 | CM ---
Reviewed the chart notes and spoke with the patient at the bedside. Patient is discharged to home today. Patient's family will provide transportation.
--- NOTE | 2024-03-04 13:34 | W.DCSUMMARY ---
Discharge Summary
Discharge Data
Date of Admission: 03/03/24
Date of Discharge: 03/04/24
-
Pending Results: No
Hospital Course
Principal Diagnosis:
Symptomatic acute blood loss anemia most likely from dysfunctional uterine bleeding (DUB)
Iron deficiency anemia
Hypocalcemia, likely in setting of vitamin D deficiency and hypomagnesemia
Chronic Diagnoses:�
History of vitamin D deficiency. 25 (OH) vit D level within normal limits this admission at 51
Asthma
Consultations:�
None
Procedures:�
None
Clinical course:�
This is a 28-year-old woman with past medical history as stated above who was sent in due to her outpatient hemoglobin being low. She also complaining of weakness and fatigue.
Problem 1:
Symptomatic acute blood loss anemia most likely from dysfunctional uterine bleeding (DUB).
She received 1 unit PRBC transfusion which improved her hemoglobin from 7.2 to 9.0 on the day of discharge.
Her iron panel noted iron deficiency, and she received IV iron while in the hospital, and she can resume her previous oral iron tablet following discharge.
The patient sees CRYSTAL FINISHER in [place] with plan for IUD placement to help with her DUB.
She has been informed to follow-up closely with her CRYSTAL FINISHER outpatient following discharge.
Problem 2:
Hypocalcemia, acute on chronic.
This was treated with IV calcium gluconate while in the hospital.
Her 25 (OH) vit D level was within normal limits at 51 this admission.
Her magnesium level was noted to be low at 1.6 and this was repleted with IV Mag.
She can check outpatient BMP with result to her PCP.
She has also been informed that she could follow-up with nephrology outpatient for her electrolyte abnormality if they do not correct outpatient.
As for the rest of her medical problems, they were stable during her hospital stay.
Discharge Plan
-
Patient Disposition: Home (Routine Discharge)
Discharge Diagnosis/Procedures: Symptomatic acute blood loss anemia most likely due to dysfunctional uterine bleeding; Hypocalcemia
Condition: Good
Diet: As tolerated
Activity: As tolerated
Driving Restrictions: As prior to admission
Blood Work: CBC and BMP in 1 week, result to PCP
Activity Restrictions/Additional Instructions:
follow up closely with your OBGYN outpatient for plan of your uterine bleeding.
You can follow up with the burr picker for your low calcium level
Referrals:
PRIVATE,PHYSICIAN [Family Provider] - in less than 1 week
Prescriptions:
Continued
ferrous sulfate 325 mg (65 mg iron) tablet
325 mg PO DAILY Qty: 30 3RF
Vitamin D2 50,000 unit
See Rx Instructions .ROUTE .COMPLEX
Rx Instructions:
twotimes a week orally ;50,000 orally
norethindrone (contraceptive) 5 mg
5 mg PO BID
cholecalciferol (vitamin D3) 25 mcg (1,000 unit) capsule
25 mcg PO DAILY
Discharge Orders:
Discharge Patient (As Directed); Ordered 03/04/24
Ordered By: Cristine Flowers
Discharge Date and Time
Print Language: KHMER
[2024-03-04 15:00] VITALS: BP 107/67
== END 2024-03-04 17:00 | disposition home or self-care (01) ==
LOC: 2 SOUTH 04:49
PROVIDERS: ADMITTING PHYSICIAN Internal Medicine; ATTENDING PHYSICIAN Internal Medicine; EMERGENCY PHYSICIAN Emergency Medicine
DX: N93.8 Other specified abnormal uterine and vaginal bleeding (principal); D62 Acute posthemorrhagic anemia; R79.89 Other specified abnormal findings of blood chemistry; E78.00 Pure hypercholesterolemia, unspecified; I10 Essential (primary) hypertension; J45.909 Unspecified asthma, uncomplicated; D50.9 Iron deficiency anemia, unspecified; R06.02 Shortness of breath; R42 Dizziness and giddiness; R53.1 Weakness; R53.83 Other fatigue; R20.2 Paresthesia of skin; E83.51 Hypocalcemia; K59.00 Constipation, unspecified; E83.42 Hypomagnesemia
CPT/HCPCS: 36430; 80048; 80053; 82306; 82330; 82607; 82728; 82746; 83540; 83550; 83735; 84443; 85014; 85018; 85025; 85027; 86850; 86900; 86901; 86920; 93005; 96374; 99285; G0378; J2916; P9016

== ENCOUNTER 2024-04-20 11:04 | Emergency (ER) | payer OTHER, SELFPAY ==
[2024-04-20 11:09] VITALS: BP 137/73
--- NOTE | 2024-04-20 12:20 | EDRN ---
Dr. Gonzalez in room w/ pt at this time.
[2024-04-20 12:44] VITALS: BMI 37.8
[2024-04-20 13:22] VITALS: BP 110/75
--- NOTE | 2024-04-20 14:10 | ED.GENMED ---
History of Present Illness
General
Chief Complaint: Abdominal Pain
Source: patient
Exam Limitations: none
Time Seen by Provider: 04/20/24 12:22
Nursing documentation reviewed up to this point in time: agreed with
History of Present Illness
History of Present Illness:
Patient presents to ED secondary to persistent vaginal itching/painful sensation with discharge over the past 1 week. Patient was evaluated urgent care center and was given prescription for Diflucan x 1, without improvement in symptoms. Denies
fever or chills. Denies direct trauma. Denies previous history of similar symptoms. Denies bleeding. Denies nausea or vomiting. In addition, patient who is currently taking iron secondary to iron deficiency anemia, reports that she is having
trouble with bowel movements, despite taking outpatient stool softeners.
Past History
Past History
ED Past Medical History: Asthma, HTN and Hypercholesterolemia
ED Past Surgical History: None
Patient has exhibited threatening behavior?: No
PSI?: No
Social History
Tobacco: Non-smoker
Alcohol: None
Drug: None
Personal:
Living: with family
Review of Systems
Review of Systems
Allergies reviewed?: Yes
All Other Systems: ROS reviewed and negative except as documented in HPI and ROS
Constitutional: Reports no symptoms; Denies fever
ABD/GI: Reports constipated; Denies abdominal pain, nausea, vomiting or diarrhea
: Reports discharge
Musculoskeletal: Reports no symptoms
Skin: Reports no symptoms
Neurological: Reports no symptoms
Phy Exam
Physical Exam
Physical Exam:
Physical Exam
General: no apparent distress, not acutely ill. afebrile
Head: nc/at. eomi
Neck: supple. no meningeal signs.
Abdomen: normal bowel sounds. not tender.
: (BILL Desai, at bedside) copious thick white discharge noted with diffuse tenderness. no open lesions noted.
Neuro: alert and oriented. no focal neurological deficits
Skin: no rash
Psychiatric: well kept. interactive and cooperative
Extremities: no edema. no calf tenderness.
Course
Orders/Labs/Results
Orders:
Orders
04/20/24 14:17
CefTRIAXone [Rocephin] 250 mg IM NOW STA
Doxycycline [Vibramycin] 100 mg PO NOW STA
MetroNIDAZOLE [Flagyl] 500 mg PO NOW STA
04/20/24 14:18
Chlamydia/GC by PCR Urgent
CALLI Source: Endo-Cervical
Specimen Description:
Source:: ENDOCERVICAL
Date Specimen was Collected: 04/20/24
Time Specimen was Collected: 14:16
Trichomonas - Wet Prep Urgent
CALLI Source: Vagina
Specimen Description:
Date Specimen was Collected: 04/20/24
Time Specimen was Collected: 14:16
04/20/24 14:30
Fluconazole [Diflucan] 150 mg PO NOW STA
Vital Signs
Initial and Last Documented VS:
Initial Vital Signs
Temp Pulse Resp BP Pulse Ox
98.1 F 80 18 137/73 99
04/20/24 11:09 04/20/24 11:09 04/20/24 11:09 04/20/24 11:09 04/20/24 11:09
Last Documented Vital Signs
Temp Pulse Resp BP Pulse Ox
98.1 F 88 16 118/72 100
04/20/24 11:09 04/20/24 15:10 04/20/24 15:10 04/20/24 15:10 04/20/24 15:10
MDM/Problems Addressed
MDM/Problems Addressed:
GC/CT and trichomonas pending.
Pt will be treated empirically with rocephin/doxycycline/flagyl. Pt advised to f/u with her cargo checker physician for re-evaluation.
*Critical Care Note
Total Time (30-74mins, 75-104mins- exclusive of procedures): Not Applicable
ED Attending Note
-
Portions of this chart may have been created with voice recognition software.� Occasional wrong word or��sound alike� substitutions may have occurred due to the inherent limitations of voice recognition software.
Discharge Plan
Departure
Patient Disposition: Home (Routine Discharge)
Date of Disposition: 04/20/24
Time of Disposition: 14:18
Patient with high blood pressure during this ER visit?: Yes
Discharge Problem:
Vaginal discharge
Instructions: Vaginal discharge
Prescriptions:
New
doxycycline hyclate 100 mg capsule
100 mg PO BID Qty: 27 0RF
metronidazole 500 mg tablet
500 mg PO TID Qty: 41 0RF
No Action
cholecalciferol (vitamin D3) 25 mcg (1,000 unit) capsule
25 mcg PO DAILY
norethindrone acetate 5 mg tablet
5 mg PO BID
ergocalciferol (vitamin D2) 1,250 mcg (50,000 unit) capsule
50,000 unit PO MOFR
ferrous sulfate 325 mg (65 mg iron) tablet
325 mg PO DAILY
polyethylene glycol 3350 17 gram/dose powder
17 g PO BID
fluconazole 150 mg tablet
150 mg PO ONCE
albuterol sulfate 90 mcg/actuation HFA aerosol inhaler
2 puff INHALATION R Q4HPRN PRN (Reason: SOB)
Referrals:
Josephine Ryan CRNP [Family Provider] -
Activity Restrictions/Additional Instructions:
As discussed, please follow-up with your CATERING SERVER physician for reevaluation. Your prescriptions have been sent electronically to [facility] pharmacy in [place].
Interventions
Interventions:
*Risk Screen - Suicide Last Done: 04/20/24 13:20
*General Assessment Last Done: 04/20/24 13:20
*Neglect/Abuse Screening Last Done: 04/20/24 13:20
ED- Fall Risk Assessment Last Done: 04/20/24 13:22
*ED COVID-19 Vaccine History Last Done: 04/20/24 13:20
*Nursing Disposition Last Done: 04/20/24 15:19
DM-Ppxeby-Bgvylycpjb Assessment Last Done: 04/20/24 13:22
Discharge Date and Time
Discharge Date/Time: 04/20/24 15:22
Print Language: MALAY
[2024-04-20] MEDS: VIBRAMYCIN 100 MG PO (15:05)
[2024-04-20] MEDS: FLAGYL 500 MG PO (15:07)
[2024-04-20] MEDS: DIFLUCAN 150 MG PO (15:07)
[2024-04-20] MEDS: ROCEPHIN 250 MG IM (15:08)
[2024-04-20 15:10] VITALS: BP 118/72
--- NOTE | 2024-04-20 15:21 | EDRN ---
Pt asked about bowels. Pt was advised at discharge to continue miralax and try stool softener as senna or colace and if does not work follow up w/ PCP. Pt also had difficulty swallowing pills and pt was advised to try taking her pills w/ apple sauce.
== END 2024-04-20 15:22 | disposition home or self-care (01) ==
LOC: EMR 11:04
PROVIDERS: EMERGENCY PHYSICIAN Emergency Medicine; FAMILY PHYSICIAN Nurse Practitioner Pediatrics
DX: N89.8 Other specified noninflammatory disorders of vagina (principal)
CPT/HCPCS: 96372; 99284; 87210; 87491; 87591

== ENCOUNTER 2024-07-06 09:28 | Emergency (ER) | payer OTHER, SELFPAY ==
[2024-07-06 09:41] VITALS: BP 119/69
[2024-07-06 09:49] VITALS: BP 139/69
[2024-07-06 10:00] VITALS: BP 132/57
--- NOTE | 2024-07-06 10:00 | ED.GENMED ---
History of Present Illness
General
Chief Complaint: Fall
Source: patient
Exam Limitations: none
Time Seen by Provider: 07/06/24 09:45
History of Present Illness
History of Present Illness:
See MDM
Past History
Past History
ED Past Medical History: Asthma, HTN and Hypercholesterolemia
ED Past Surgical History: None
Patient has exhibited threatening behavior?: No
PSI?: No
Social History
Tobacco: Non-smoker
Alcohol: None
Drug: None
Personal:
Living: with family
Phy Exam
Physical Exam
Physical Exam:
See MDM
Course
Orders/Labs/Results
Orders:
Orders
07/06/24 09:59
Ketorolac [Toradol] 30 mg IV NOW STA
07/06/24 10:00
CT Abd/pelvis W Iv Cont Urgent
Comment:
Reason For Exam: generalized abd pain, recent fall
Test Result ONCE
07/06/24 10:23
Complete Blood Count/With Diff Urgent
Comprehensive Metabolic Panel Urgent
HCG, Serum Qualitative Screen Urgent
Lipase Urgent
Abnormal Lab Results
07/06/24
10:23
MCH 26.3 L pg
(27.0-31.0)
MCHC 32.4 L g/dL
(33.0-37.0)
RDW 19.4 H %
(11.5-14.5)
Creatinine 0.5 L mg/dL
(0.6-1.0)
Glucose 121 H mg/dl
(70-99)
Calcium 7.3 L mg/dl
(8.4-10.2)
07/06/24 10:23
07/06/24 10:23
Vital Signs
Initial and Last Documented VS:
Initial Vital Signs
Temp Pulse Resp BP Pulse Ox
98.0 F 70 16 119/69 98
07/06/24 09:41 07/06/24 09:41 07/06/24 09:41 07/06/24 09:41 07/06/24 09:41
Last Documented Vital Signs
Temp Pulse Resp BP Pulse Ox
98.0 F 72 20 132/57 98
07/06/24 09:41 07/06/24 11:00 07/06/24 11:00 07/06/24 10:00 07/06/24 11:00
MDM/Problems Addressed
Differential Diagnosis Includes:
HPI and MDM Narrative:
28-year-old female presenting for evaluation of generalized abdominal pain. Patient had a fall at work a few days ago. Since then, she has been developing worsening abdominal pain that is exacerbated with food intake. On exam, she does have
generalized abdominal pain which is also noted in the lower quadrant. We discussed that the fall and the abdominal pain may not be related. Given her pain, will obtain CT
Physical exam
General: Well appearing and non-toxic
HEENT: protecting airway
Neck: appears supple
CV: No evidence of cyanosis
Resp: No accessory muscle use
Abd: Non-distended. Generalized abdominal pain. Mild tenderness to the right lower quadrant
Back: No bruising noted
Extremities: No deformities
Neuro: alert
Psych: Normal affect
Skin: Intact
Problems Addressed including Acute and Chronic Conditions affecting care:
1. Abdominal pain
Acuity: acute
Prognosis: stable
Details: Given the generalized abdominal, will obtain CT. Will give dose of Toradol
Updates
CT does show evidence of constipation. There is no evidence of trauma. Patient feels comfortable going home
Differential Diagnosis (but not limited to): Acute appendicitis, abdominal muscle cramping, diverticulitis, cholecystitis
Testing considered: Right upper quadrant ultrasound
Drug therapy (if applicable): OTC meds, please see d/c instruction regarding Rx drugs
Amount and/or Complexity of Data Reviewed
Clinical info obtained from: Patient
External data reviewed: N/A
Labs I independently reviewed (but not limited to): Mild hypocalcemia
Radiology: The CT scan was personally and independently reviewed. In addition, official CT report reviewed.
Pulse Ox: not hypoxic
EKG independently reviewed: N/A
Marine Steam [employer]itter: N/A
Critical Care: N/A
Risk of Complication:
Social Determinants of health: Good social support
Discussed with other providers: N/A
Escalation of Care includes Admit/Obs: After being observed in the Emergency Department, pt stable for discharge.
Occasional wrong word or 'sound a like' substitutions may have occurred due to the inherent limitations of voice recognition software. Read the chart carefully and recognize, using context, where substitutions have occurred.
*Critical Care Note
Total Time (30-74mins, 75-104mins- exclusive of procedures): Not Applicable
ED Attending Note
-
Portions of this chart may have been created with voice recognition software.� Occasional wrong word or��sound alike� substitutions may have occurred due to the inherent limitations of voice recognition software.
Discharge Plan
Departure
Patient Disposition: Home (Routine Discharge)
Date of Disposition: 07/06/24
Time of Disposition: 13:03
Patient with high blood pressure during this ER visit?: No
Discharge Problem:
Constipation
Instructions: Constipation, Adult ED
Prescriptions:
No Action
cholecalciferol (vitamin D3) 25 mcg (1,000 unit) capsule
25 mcg PO DAILY
doxycycline hyclate 100 mg capsule
100 mg PO BID Qty: 27 0RF
metronidazole 500 mg tablet
500 mg PO TID Qty: 41 0RF
norethindrone acetate 5 mg tablet
5 mg PO BID
ergocalciferol (vitamin D2) 1,250 mcg (50,000 unit) capsule
50,000 unit PO MOFR
ferrous sulfate 325 mg (65 mg iron) tablet
325 mg PO DAILY
polyethylene glycol 3350 17 gram/dose powder
17 g PO BID
fluconazole 150 mg tablet
150 mg PO ONCE
albuterol sulfate 90 mcg/actuation HFA aerosol inhaler
2 puff INHALATION R Q4HPRN PRN (Reason: SOB)
Referrals:
NONE,* [Family Provider] -
Stand Alone Forms: Return to Work
Activity Restrictions/Additional Instructions:
Please return for any worsening symptoms.
You may return at any time if you have further concerns.
This CT showed evidence of constipation. You may benefit from a dose of MiraLAX at home.
Please follow up with your doctor at the first available appointment, preferably this week. Please discuss your blood work and your low calcium level. Your doctor may want it repeated.
Thank you for choosing [facility].
Interventions
Interventions:
*Risk Screen - Suicide Last Done: 07/06/24 11:32
*General Assessment Last Done: 07/06/24 11:32
*Neglect/Abuse Screening Last Done: 07/06/24 11:32
*ED COVID-19 Vaccine History Last Done: 07/06/24 11:32
ED-Musculoskeletal Assessment Last Done: 07/06/24 11:32
ED- Neurological Assessment Last Done: 07/06/24 11:32
ED-Skin Assessment Last Done: 07/06/24 11:32
Discharge Date and Time
Print Language: LATVIAN
[2024-07-06] MEDS: TORADOL 30 MG IV (10:24)
[2024-07-06 10:47] LABS: % Basophils 0.1 % (0-2); % Eosinophils 1.7 % (0-6); % Immature Granulocytes 0.4 % (0-0.5); % Lymphocytes 22.6 % (20.5-51.1); % Monocytes 6.5 % (1.7-9.3); % Neutrophils 68.7 % (42.2-75.2); Absolute Eosinophils 0.1 10^3/uL (0-0.7); Absolute Lymphocytes 1.6 10^3/uL (1.2-3.4); Absolute Monocytes 0.5 10^3/uL (0.1-0.6); Absolute Neutrophils 4.8 10^3/uL (1.4-6.5); Hematocrit 39.8 % (37.0-47.0); Hemoglobin 12.9 g/dL (12.0-16.0); Mean Corp Hgb Conc. 32.4 g/dL (33.0-37.0); Mean Corpuscular Hgb 26.3 pg (27.0-31.0); Mean Corpuscular Volume 81.2 fL (81.0-99.0); Nucleated Red Blood Cells % 0 %; Red Cell Dist. Width 19.4 % (11.5-14.5)
[2024-07-06 10:54] LABS: HCG, Serum Qualitative Screen Negative
[2024-07-06 10:58] LABS: ALT (SGPT) 19 U/L (0-35); AST (SGOT) 21 U/L (14-36); Albumin 4.4 g/dl (3.5-5.0); Alkaline Phosphatase 72 U/L (38-126); Blood Urea Nitrogen 13 mg/dl (7-17); Calcium 7.3 mg/dl (8.4-10.2); Carbon Dioxide 26 mmol/L (22-30); Chloride 102 mmol/L (98-107); Glucose 121 mg/dl (70-99); Lipase 53 U/L (23-300); Potassium 4.1 mmol/L (3.5-5.1); Sodium 140 mmol/L (135-145); Total Protein 7.9 g/dl (6.3-8.2); eGFR > 60.00
[2024-07-06 11:11] LABS: Platelet Count 179 10^3/uL (130-400)
[2024-07-06 13:14] VITALS: BP 111/77
== END 2024-07-06 13:15 | disposition home or self-care (01) ==
LOC: EMR 09:28
PROVIDERS: EMERGENCY PHYSICIAN Student in an Organized Health Care Education/Training Program
DX: K59.00 Constipation, unspecified (principal); J45.909 Unspecified asthma, uncomplicated; I10 Essential (primary) hypertension; E78.00 Pure hypercholesterolemia, unspecified
CPT/HCPCS: 99284; 96374; 74177; 80053; 83690; 84703; 85025; Q9967

== ENCOUNTER 2024-09-16 11:58 | Emergency (ER) | payer OTHER, SELFPAY ==
[2024-09-16 12:16] VITALS: BP 156/83
[2024-09-16 13:04] LABS: % Basophils 0.5 % (0-2); % Eosinophils 7.6 % (0-6); % Immature Granulocytes 0.5 % (0-0.5); % Monocytes 6.6 % (1.7-9.3); % Neutrophils 77.8 % (42.2-75.2); Absolute Eosinophils 0.7 10^3/uL (0-0.7); Absolute Lymphocytes 0.6 10^3/uL (1.2-3.4); Absolute Monocytes 0.6 10^3/uL (0.1-0.6); Absolute Neutrophils 6.8 10^3/uL (1.4-6.5); Hematocrit 40.3 % (37.0-47.0); Hemoglobin 13.1 g/dL (12.0-16.0); Mean Corp Hgb Conc. 32.5 g/dL (33.0-37.0); Mean Corpuscular Hgb 27.8 pg (27.0-31.0); Mean Corpuscular Volume 85.6 fL (81.0-99.0); Mean Platelet Volume 12.6 fL (7.4-10.4); Nucleated Red Blood Cells % 0 %; Platelet Count 162 10^3/uL (130-400); Red Blood Cell Count 4.71 10^6/uL (4.20-5.40); Red Cell Dist. Width 15.9 % (11.5-14.5); White Blood Cell Count 8.7 10^3/uL (4.8-10.8)
[2024-09-16 13:12] LABS: HCG, Serum Qualitative Screen Negative
[2024-09-16 13:16] LABS: COVID-19 Antigen Negative (Negative)
[2024-09-16 13:23] LABS: ALT (SGPT) 21 U/L (0-35); AST (SGOT) 24 U/L (14-36); Albumin 4.6 g/dl (3.5-5.0); Alkaline Phosphatase 81 U/L (38-126); Blood Urea Nitrogen 13 mg/dl (7-17); Carbon Dioxide 26 mmol/L (22-30); Chloride 99 mmol/L (98-107); Glucose 102 mg/dl (70-99); Potassium 3.8 mmol/L (3.5-5.1); Sodium 137 mmol/L (135-145); Total Bilirubin 1.3 mg/dl (0.2-1.3); Total Protein 8.3 g/dl (6.3-8.2); eGFR > 60.00
[2024-09-16 13:38] LABS: Lipase 40 U/L (23-300)
--- NOTE | 2024-09-16 15:20 | ED.GENMED ---
History of Present Illness
General
Chief Complaint: Cold/Flu/URI Symptoms
Source: patient
Time Seen by Provider: 09/16/24 15:17
History of Present Illness
History of Present Illness:
28-year-old female presenting the emergency department for 1 day of flulike symptoms including fevers, body aches, nausea, vomiting, cough, sore throat and generalized malaise. No known sick contacts. Patient took some Tylenol prior to arrival.
She denies any abdominal pain, nausea, vomiting, bowel changes or urinary symptoms. No other concerns presently.
Past History
Past History
ED Past Medical History: Asthma, HTN and Hypercholesterolemia
ED Past Surgical History: None
Patient has exhibited threatening behavior?: No
PSI?: No
Social History
Tobacco: Non-smoker
Alcohol: None
Drug: None
Personal:
Living: with family
Review of Systems
Review of Systems
All Other Systems: ROS reviewed and negative except as documented in HPI and ROS
Phy Exam
Physical Exam
Physical Exam:
GENERAL: Alert , in no apparent distress
EYE: conjunctiva clear
NECK: Supple, no significant adenopathy.
ENT: o/p clr, mmm.Congestion noted
CARDIAC: Regular rate and rhythm
LUNGS: Clear breath sounds bilaterally, no acute respiratory distress, no wheezes/rales/rhonchi
NEUROLOGICAL: Alert and oriented
SKIN: Warm and dry, skin intact.
MUSCULOSKELETAL: well perfused.
PSYCH: Normal and appropriate interaction.
Scores
Heart Failure Risk
Heart Failure Risk Score: Not Applicable
Heart Score for Chest Pain Patients
STEMI patient?: Not applicable
Withdrawal Assessment of Alcohol
Withdrawal Assessment Completed?: Not applicable
Course
Orders/Labs/Results
Orders:
Orders
09/16/24 12:20
Test Result ONCE
09/16/24 12:38
COVID-19 Antigen Urgent
Source: Nasal Swab
Complete Blood Count/With Diff Urgent
Comprehensive Metabolic Panel Urgent
HCG, Serum Qualitative Screen Urgent
Comment: Notify provider if positive test present
Lipase Urgent
Influenza A+B Rapid Molecular Urgent
CALLI Source: Nasal Swab
Specimen Description:
Abnormal Lab Results
09/16/24
12:38
MCHC 32.5 L g/dL
(33.0-37.0)
RDW 15.9 H %
(11.5-14.5)
MPV 12.6 H fL
(7.4-10.4)
Absolute Neuts (auto) 6.8 H 10^3/uL
(1.4-6.5)
Absolute Lymphs (auto) 0.6 L 10^3/uL
(1.2-3.4)
Neutrophils % 77.8 H %
(42.2-75.2)
Lymphocytes % 7.0 L %
(20.5-51.1)
Eosinophils % 7.6 H %
(0-6)
Glucose 102 H mg/dl
(70-99)
Calcium 7.0 L mg/dl
(8.4-10.2)
Total Protein 8.3 H g/dl
(6.3-8.2)
09/16/24 12:38
09/16/24 12:38
Vital Signs
Initial and Last Documented VS:
Initial Vital Signs
Temp Pulse Resp BP Pulse Ox
99.4 F 113 16 156/83 100
09/16/24 12:16 09/16/24 12:16 09/16/24 12:16 09/16/24 12:16 09/16/24 12:16
Last Documented Vital Signs
Temp Pulse Resp BP Pulse Ox
99.3 F 114 20 121/82 96
09/16/24 15:23 09/16/24 15:21 09/16/24 15:21 09/16/24 15:21 09/16/24 15:21
MDM/Problems Addressed
Differential Diagnosis Includes:
COVID, flu, pneumonia, other viral etiology
MDM/Problems Addressed:
28-year-old female presenting to the emergency department for evaluation of flulike symptoms that began earlier today. No known sick contacts. COVID and flu testing was ordered while in triage and patient was ultimately positive for the flu. Will
prescribe Tamiflu and Zofran due to patient's posttussive emesis. Advised okud-ewz-iedkion remedies. Patient is otherwise medically stable for discharge and aware of return precautions.
*Pulse Oximetry
Patient hypoxic: no
*Critical Care Note
Total Time (30-74mins, 75-104mins- exclusive of procedures): Not Applicable
ED Attending Note
-
Portions of this chart may have been created with voice recognition software.� Occasional wrong word or��sound alike� substitutions may have occurred due to the inherent limitations of voice recognition software.
Discharge Plan
Departure
Patient Disposition: Home (Routine Discharge)
Date of Disposition: 09/16/24
Time of Disposition: 15:20
Patient with high blood pressure during this ER visit?: No
Discharge Problem:
Influenza A
Instructions: Flu in adults - Discharge instructions
Prescriptions:
New
oseltamivir [Tamiflu] 75 mg capsule
75 mg PO BID 5 Days Qty: 10 0RF
ondansetron 4 mg tablet,disintegrating
4 mg PO TID PRN (Reason: nausea and vomiting) Qty: 8 0RF
No Action
cholecalciferol (vitamin D3) 25 mcg (1,000 unit) capsule
25 mcg PO DAILY
doxycycline hyclate 100 mg capsule
100 mg PO BID Qty: 27 0RF
metronidazole 500 mg tablet
500 mg PO TID Qty: 41 0RF
norethindrone acetate 5 mg tablet
5 mg PO BID
ergocalciferol (vitamin D2) 1,250 mcg (50,000 unit) capsule
50,000 unit PO MOFR
ferrous sulfate 325 mg (65 mg iron) tablet
325 mg PO DAILY
polyethylene glycol 3350 17 gram/dose powder
17 g PO BID
fluconazole 150 mg tablet
150 mg PO ONCE
albuterol sulfate 90 mcg/actuation HFA aerosol inhaler
2 puff INHALATION R Q4HPRN PRN (Reason: SOB)
Stand Alone Forms: Return to Work
Interventions
Interventions:
*Risk Screen - Suicide Last Done: 09/16/24 12:16
*General Assessment Last Done: 09/16/24 12:16
*Neglect/Abuse Screening Last Done: 09/16/24 12:16
*ED COVID-19 Vaccine History Last Done: 09/16/24 12:16
*Nursing Disposition Last Done: 09/16/24 15:23
ED- Pulmonary Assessment Last Done: 09/16/24 15:23
Discharge Date and Time
Print Language: SERBIAN
[2024-09-16 15:21] VITALS: BP 121/82
== END 2024-09-16 15:36 | disposition home or self-care (01) ==
LOC: EMR 11:58
PROVIDERS: Emergency Medicine; EMERGENCY PHYSICIAN Emergency Medicine
DX: J10.1 Influenza due to other identified influenza virus with other respiratory manifestations (principal); J45.909 Unspecified asthma, uncomplicated; I10 Essential (primary) hypertension; E78.00 Pure hypercholesterolemia, unspecified
CPT/HCPCS: 99283; 80053; 83690; 84703; 85025; 87502; 87811

== ENCOUNTER 2025-04-13 11:36 | Emergency (ER) | payer OTHER, SELFPAY ==
[2025-04-13] VITALS (7 sets, daily range): BP systolic 82–127; BP diastolic 48–80
--- NOTE | 2025-04-13 12:10 | ED.GENMED ---
History of Present Illness
General
Chief Complaint: Abdominal Symptoms
Source: patient
Exam Limitations: none
Time Seen by Provider: 04/13/25 11:55
Nursing documentation reviewed up to this point in time: agreed with
History of Present Illness
History of Present Illness:
29-year-old female presents today for vaginal bleeding for the past month some days with clots. She also has pain in the left abdomen mainly in the left upper abdomen. Has been using one Pampers per day.
History of HTN, significant uterine bleeding and admitted here 04/2024 for DUB, with acute blood loss anemia, requiring 1 unit PRBCs, Iron deficiency anemia, hypocalcemia likely in the setting of vitamin D deficiency hypomagnesemia, seen by [facility] at
that time and plan was for her to go back to her [facility] in [place] for an IUD placement to help with her DUB.
She did not do that.
Past History
Past History
ED Past Medical History: Asthma, HTN, Hypercholesterolemia and Other (DUB)
ED Past Surgical History: None
Patient has exhibited threatening behavior?: No
PSI?: No
Social History
Tobacco: Non-smoker
Alcohol: None
Drug: None
Personal:
Living: with family
Employment: Employed
Review of Systems
Review of Systems
Allergies reviewed?: Yes
All Other Systems: ROS reviewed and negative except as documented in HPI and ROS
Constitutional: Denies fever or fatigue
Respiratory: Denies trouble breathing
Cardiac: Denies chest pain
ABD/GI: Reports abdominal pain; Denies nausea, vomiting or diarrhea
: Reports bleeding (Has had her period for the past month.)
Neurological: Denies dizzy
Phy Exam
Physical Exam
Physical Exam:
GENERAL: No acute distress. A&Ox3.
CONSTITUTIONAL: Afebrile.
EYES: clear, conjunctivae normal
ENMT: moist mucus membranes, Pharynx nl
RESPIRATORY: Regular respirations, nonlabored, lungs clear.
CARDIOVASCULAR: Regular rate and rhythm, no murmurs, no rubs.
GI: Soft, nontender, normal BS
: Few tablespoons amount fresh blood on pampers
MUSCULOSKELETAL: Moves with ease. Well perfused.
SKIN: Warm, dry, pink
PSYCH: Normal mood and affect. Well kept, interactive and appropriate
NEUROLOGIC: Awake, alert and oriented. No focal neurological deficits
Course
Orders/Labs/Results
Orders:
Orders
04/13/25 11:49
Test Result ONCE
04/13/25 11:52
HCG, Urine Qualitative Screen Urgent
Date Specimen was Collected: 04/13/25
Time Specimen was Collected: 11:48
Urinalysis Reflex To Culture Urgent
Date Specimen was Collected: 04/13/25
Time Specimen was Collected: 11:48
Urine Microscopic Reflex Cult Urgent
Urine Culture Urgent
CALLI Source: U
Specimen Description:
Date Specimen was Collected: 04/13/25
Time Specimen was Collected: 11:48
04/13/25 12:04
0.9% Sodium Chloride 1000 ml [Nss] 1,000 ml IV BOLUS
Ketorolac [Toradol] 15 mg IV NOW STA
04/13/25 12:05
US Pelvis W Transvag Combined Urgent
Comment:
Reason For Exam: Left abd pain, menses x 1 month w clots
04/13/25 12:06
Lipase Urgent
04/13/25 12:15
Add On- LAB Urgent
Tests Added?: Magnesium
04/13/25 12:20
Basic Metabolic Panel Urgent
Complete Blood Count/With Diff Urgent
04/13/25 13:27
Bvafz-Ozpf-Kphguom Urgent
Comment: ADD ON
Magnesium Urgent
Potassium Urgent
Comment: ADD ON
04/13/25 14:32
Add On- LAB Urgent
Comments:: please do on the SST tube that had the Mag run on ( drawn at 1327)
Tests Added?: K, LFTs
Abnormal Lab Results
04/13/25 04/13/25 04/13/25
11:52 12:20 13:27
Hgb 11.2 L g/dL
(12.0-16.0)
Hct 34.8 L %
(37.0-47.0)
MCH 26.2 L pg
(27.0-31.0)
MCHC 32.2 L g/dL
(33.0-37.0)
RDW 17.2 H %
(11.5-14.5)
Neutrophils % 75.5 H %
(42.2-75.2)
Lymphocytes % 18.9 L %
(20.5-51.1)
Potassium 3.4 L mmol/L
(3.5-5.1)
Glucose 131 H mg/dl
(70-99)
Calcium 7.2 L mg/dl
(8.4-10.2)
Magnesium 1.5 L mg/dl
(1.6-2.3)
Albumin 3.3 L g/dl
(3.5-5.0)
Ur Occult Blood Reflex 4+ A
(Negative)
Urine Nitrite (Reflex) Positive A
(Negative)
Urine RBC 70-80 A /HPF
(0-2)
Urine Bacteria (Reflex) Few A
(Negative)
Urine Albumin (Reflex) 2+ A
(Neg - Trace)
04/13/25 12:20
04/13/25 13:27
Vital Signs
Initial and Last Documented VS:
Initial Vital Signs
Temp Pulse Resp BP Pulse Ox
98.4 F 92 18 127/80 98
04/13/25 11:42 04/13/25 11:42 04/13/25 11:42 04/13/25 11:42 04/13/25 11:42
Last Documented Vital Signs
Temp Pulse Resp BP Pulse Ox
98.4 F 92 18 106/57 99
04/13/25 11:42 04/13/25 11:42 04/13/25 11:42 04/13/25 17:02 04/13/25 17:02
MDM/Problems Addressed
Differential Diagnosis Includes:
DUB, miscarriage, bleeding in
MDM/Problems Addressed:
29-year-old female presents today for vaginal bleeding for the past month some days with clots. She also has pain in the left abdomen mainly in the left upper abdomen. Has been using one Pampers per day.
History of HTN, significant uterine bleeding and admitted here 04/2024 for DUB, with acute blood loss anemia, requiring 1 unit PRBCs, Iron deficiency anemia, hypocalcemia likely in the setting of vitamin D deficiency hypomagnesemia, seen by [facility] at
that time and plan was for her to go back to her [facility] in [place] for an IUD placement to help with her DUB.
She did not do that.
CBC: Hgb 11.2
CMP with no clinically significant abnormality, calcium 7.2 compared to last on 08/2024 which was 7.0
Magnesium 1.5
hCG negative
UA: Negative for infection
4:00 p.m.
IMPRESSION:
Complex left ovarian cyst likely a benign hemorrhagic cyst. Repeat ultrasound in 6 weeks at a different phase of the patient's menstrual cycle is recommended.
Blood flow to right ovary not demonstrated. This may be due to location. If there is concern of torsion, MRI or CT examination with IV contrast could be performed.
Mild free fluid in the pelvis slightly more than expected for physiologic fluid. A recently ruptured ovarian cyst should be considered.
No right side abd tenderness, not concerned for R ovarian torsion
Mildly anemic, using only 1 depends a day which is not considered significant bleeding
Ultrasound report reviewed with patient and given a copy.
She will follow-up with her [facility] doctor in [facility].
5:00 p.m.
Her pain was relieved a little with Tordaol. Describes it now as left flank pain wrapping around left side and across upper abdomen. Will obtain CT scan
Pt does not want to stay for CT scan, states her pain is gone, she will f/u with her [facility]
*Pulse Oximetry
SaO2: 98
Oxygen Mode of Delivery: Room air
Patient hypoxic: not evaluated
*Critical Care Note
Total Time (30-74mins, 75-104mins- exclusive of procedures): Not Applicable
ED Attending Note
-
Portions of this chart may have been created with voice recognition software.� Occasional wrong word or��sound alike� substitutions may have occurred due to the inherent limitations of voice recognition software.
Discharge Plan
Departure
Patient Disposition: Home (Routine Discharge)
Date of Disposition: 04/13/25
Time of Disposition: 17:01
Patient with high blood pressure during this ER visit?: No
Condition: Good
Discharge Problem:
Dysfunctional uterine bleeding
Instructions: Heavy periods - ED (DC), Abdominal Pain
Prescriptions:
No Action
No Current Medications
0
Referrals:
Your [facility] Doctor in [place] [Other] - Call in 1-3 days for appt
NONE,* [Family Provider, Internal Medicine]
Activity Restrictions/Additional Instructions:
As we discussed, you are a little anemic but not dangerously so.
Call your [facility] doctor in the morning and make an appointment for sometime within the next week.
Take copies of all of your lab work and your ultrasound with you.
Retrun here if you soak more than 2 pads an hour, large clots, worsening abdominal pain or feeling worse in any way.
Interventions
Interventions:
*Risk Screen - Suicide Last Done: 04/13/25 11:42
*General Assessment Last Done: 04/13/25 11:42
*Neglect/Abuse Screening Last Done: 04/13/25 11:42
*ED- Fall Risk Assessment Last Done: 04/13/25 12:01
*ED COVID-19 Vaccine History Last Done: 04/13/25 12:01
*Nursing Disposition Last Done: 04/13/25 17:10
ZJ-Rsnpnd-Xzxzcxianp Assessment Last Done: 04/13/25 12:02
Discharge Date and Time
Discharge Date/Time: 04/13/25 17:12
Print Language: MONTSERRATIAN
[2025-04-13] MEDS: TORADOL 15 MG IV (12:12)
[2025-04-13] MEDS: NSS 1000 IV (12:14)
[2025-04-13 12:19] LABS: Urine Character Clear (Clear)
[2025-04-13 12:25] LABS: HCG, Urine Qualitative Screen Negative
[2025-04-13 12:28] LABS: Lipase 43 U/L (23-300)
[2025-04-13 12:57] LABS: Blood Urea Nitrogen 12 mg/dl (7-17); Calcium 7.2 mg/dl (8.4-10.2); Carbon Dioxide 24 mmol/L (22-30); Chloride 106 mmol/L (98-107); Glucose 131 mg/dl (70-99); Sodium 140 mmol/L (135-145); eGFR > 60.00
[2025-04-13 13:05] LABS: Hematocrit 34.8 % (37.0-47.0); Hemoglobin 11.2 g/dL (12.0-16.0); Mean Corp Hgb Conc. 32.2 g/dL (33.0-37.0); Mean Corpuscular Volume 81.5 fL (81.0-99.0); Nucleated Red Blood Cells % 0 %; Platelet Count 188 10^3/uL (130-400); Red Cell Dist. Width 17.2 % (11.5-14.5)
[2025-04-13 13:45] LABS: Urine Red Blood Cell 70-80 /HPF (0-2)
[2025-04-13 13:52] LABS: Magnesium 1.5 mg/dl (1.6-2.3)
[2025-04-13 16:00] LABS: ALT (SGPT) 15 U/L (0-35); AST (SGOT) 15 U/L (14-36); Albumin 3.3 g/dl (3.5-5.0); Alkaline Phosphatase 70 U/L (38-126); Potassium 3.4 mmol/L (3.5-5.1); Total Protein 6.3 g/dl (6.3-8.2)
== END 2025-04-13 17:12 | disposition home or self-care (01) ==
LOC: EMR 11:36
PROVIDERS: Registered Nurse; EMERGENCY PHYSICIAN Emergency Medicine
DX: N93.8 Other specified abnormal uterine and vaginal bleeding (principal); N83.202 Unspecified ovarian cyst, left side; I10 Essential (primary) hypertension; E78.00 Pure hypercholesterolemia, unspecified; J45.909 Unspecified asthma, uncomplicated
CPT/HCPCS: 99284; 96374; 96361; 76830; 76856; 80048; 80076; 81003; 81015; 81025; 83690; 83735; 84132; 85025; 87086